=== PATIENT | female | born 1995 | race Two or more races ===

== ENCOUNTER 2019-06-01 15:35 | Inpatient (IN) | payer MEDICAID ==
[~2019-06-01] VITALS: Ht 162.6 cm; Wt 54.5 kg
[~2019-06-01 15:35] MED LIST: MANNITOL 12.5G (25%) VIAL 50ML IV NR
[2019-06-01 16:32] LABS: BASOPHILS % 0.4 % (0.0-2.0); EOSINOPHILS % 7.5 % (0.0-5.0); HEMATOCRIT. 23.1 % (36.0-48.0); HEMOGLOBIN. 7.7 g/dL (12.0-16.0); LYMPHOCYTES % 20.2 % (20.0-50.0); MEAN PLATELET VOLUME 6.9 fl (7.4-10.4); MONOCYTES % 8.5 % (2.0-8.0); NEUTROPHILS % 63.4 % (40.0-76.0); PLATELET 187 x1000/uL (130-400); RED BLOOD CELL COUNT 2.56 mill/uL (4.2-5.4); RED CELL DISTRIBUTION WIDTH 12.9 % (11.6-14.6)
[2019-06-01 16:36] LABS: CHLORIDE 105 mEq/L (98-107)
[2019-06-01 16:38] LABS: HCG SCREEN NEGATIVE
[2019-06-01 16:40] LABS: ETHANOL BLOOD < 10 mg/dL
[2019-06-01] MEDS ORDERED: DEXTROSE 50% WATER 50ML SYRINGE IV ONE (17:00)
[2019-06-01] MEDS ORDERED: SODIUM BICARBONATE 8.4% 1 MEQ/ML 50ML SYR IV ONE ×2 (17:00→19:30)
[2019-06-01] MEDS ORDERED: CALCIUM GLUCONATE 1,000 MG in DEXT 5% WATER 100 ML IV ONE (17:00)
[2019-06-01] MEDS ORDERED: INSULIN REGULAR (HUMULIN R) 300UNITS/3ML IV ONE (17:00)
[2019-06-01] MEDS: ALBUTEROL (0.083%) 2.5MG/3ML NEB HHN SCH ×3 (17:18→18:42)
[2019-06-01 17:23] LABS: BG BASE EXCESS -17.2 mmol/L (-2.0-2.0); BG CARBOXYHEMOGLOBIN 0.3 % (0.5-1.5); BG DEOXYHEMOGLOBIN 2.7 % (0.0-5.0); BG FRACTION INSPIRED OXYGEN 28; BG HCO3 ACT 9.1 mmol/L (22.0-26.0); BG METHEMOGLOBIN 0.3 % (0.0-1.5); BG OXYGEN SATURATION 97.3 % (92.0-98.5); BG OXYHEMOGLOBIN 96.7 % (94.0-97.0); BG PCO2 23.5 mmHg (35.0-45.0); BG PH 7.207 (7.350-7.450); BG PO2 123.7 mmHg (75.0-100.0); BG SAMPLE SITE LEFT RADIAL; BG TOTAL HEMOGLOBIN 8.6 g/dL (12.0-18.0); BG VENT MODE NASAL CANNULA
[2019-06-01 18:50] LABS: CLARITY URINE TURBID (CLEAR); COLOR URINE YELLOW (YELLOW); KETONES URINE TRACE (NEGATIVE); LEUKOCYTE ESTERASE URINE TRACE (NEGATIVE); NITRITE URINE NEGATIVE (NEGATIVE); OCCULT BLOOD URINE 2+ (NEGATIVE); PH URINE 7.5 (4.5-8.0); PROTEIN URINE 4+ (NEGATIVE); SPECIFIC GRAVITY URINE 1.036 (1.005-1.030); UROBILINOGEN URINE 0.2 E.U./dL (0.2-1.0)
[2019-06-01 19:11] LABS: *AMPHETAMINES SCREEN URINE NEGATIVE (NEGATIVE); *BARBITURATES SCREEN URINE NEGATIVE (NEGATIVE); *BENZODIAZEPINES SCREEN URINE NEGATIVE (NEGATIVE); *COCAINE SCREEN URINE NEGATIVE (NEGATIVE); METHADONE URINE SCREEN NEGATIVE (NEGATIVE)
[2019-06-01 19:12] LABS: OPIATES URINE SCREEN NEGATIVE (NEGATIVE); PHENCYCLIDINE URINE SCREEN NEGATIVE (NEGATIVE)
[2019-06-01 19:13] LABS: CANNABINOID URINE SCREEN PRESUMTIVE POSITIVE (NEGATIVE)
[2019-06-01 21:00] LABS: CREATINE KINASE 273 IU/L (26-192)
[2019-06-01] MEDS ORDERED: LIDOCAINE HCL/EPINEPHRINE 1%-EPI 1:100,000 30 ML VIAL INFIL ONE (22:00)
[2019-06-01] MEDS ORDERED: LIDOCAINE HCL/EPINEPHRINE 1%-EPI 1:100,000 20 ML VIAL INFIL ONE (22:00)
[2019-06-01] MEDS ORDERED: LIDOCAINE HCL/EPINEPHRINE 1%-EPI 1:100,000 50 ML VIAL INFIL ONE (22:00)
[2019-06-01] MEDS ORDERED: LIDOCAINE HCL 2%/EPINEPHRINE/PF 10 ML VIAL INFIL ONE (22:00)
[2019-06-01] MEDS ORDERED: LORAZEPAM 2MG/ML CPJ ONE (22:13)
[2019-06-02] VITALS (105 sets, daily range): BP systolic 86–176; BP diastolic 41–129
[2019-06-02] MEDS ORDERED: PREDNISONE 10MG TABLET PO SCH
[2019-06-02] MEDS: LORAZEPAM 2MG/ML CPJ IV PRN ×3 (06:54→23:40)
[2019-06-02] MEDS: CALCIUM ACETATE 667MG CAPSULE PO SCH ×2 (08:20→12:25)
[2019-06-02] MEDS ORDERED: MORPHINE SULFATE 2 MG/ML CPJ (NOT FOR IM USE) IV PRN (08:45)
[2019-06-02] MEDS: TACROLIMUS 1MG CAPSULE PO SCH ×3 (09:00→21:00)
[2019-06-02] MEDS ORDERED: SIROLIMUS 3 MG PO SCH (09:00)
[2019-06-02] MEDS: FOLIC ACID/VITAMIN B COMP W-C TABLET PO SCH ×2 (09:00→09:35)
[2019-06-02] MEDS: CALCITRIOL 0.25MCG CAPSULE PO SCH ×2 (09:00→09:35)
[2019-06-02] MEDS: CARVEDILOL 3.125 MG TABLET PO SCH ×2 (09:00→09:35)
[2019-06-02] MEDS: MYCOPHENOLATE MOFETIL 250MG CAPSULE PO SCH ×3 (09:00→21:00)
[2019-06-02] MEDS: FAMOTIDINE 20MG/2ML VIAL IV SCH (09:34)
[2019-06-02 11:07] LABS: BASOPHILS % 0.3 % (0.0-2.0); EOSINOPHILS % 0.9 % (0.0-5.0); LYMPHOCYTES % 12.4 % (20.0-50.0); MEAN CORPUSCULAR HEMOGLOBIN 29.8 pg (28.0-32.0); NEUTROPHILS % 81.4 % (40.0-76.0); PLATELET 259 x1000/uL (130-400); RED BLOOD CELL COUNT 2.37 mill/uL (4.2-5.4); RED CELL DISTRIBUTION WIDTH 12.6 % (11.6-14.6)
[2019-06-02 11:09] LABS: HEMATOCRIT. 20.6 % (36.0-48.0)
[2019-06-02 11:13] LABS: PHOSPHORUS 6.2 mg/dL (2.5-4.9)
[2019-06-02 11:37] LABS: HEPATITIS B SURFACE ANTIGEN NEGATIVE
[2019-06-02] MEDS: CEFTRIAXONE 1 G PREMIX 50 ML IV SCH (11:58)
[2019-06-02] MEDS: METHYLPREDNISOLONE SOD SUCC 500 MG in DEXT 5% WATER 100 ML IV SCH (11:58)
[2019-06-02 12:07] LABS: HEPATITIS A AB IGM NEGATIVE (NEGATIVE)
[2019-06-02] MEDS: ONDANSETRON HCL 4MG/2ML INJ IV PRN ×2 (13:07→19:27)
[2019-06-02] MEDS ORDERED: HYDRALAZINE 20MG/ML VIAL IV SCH ×2 (18:00)
[2019-06-02] MEDS ORDERED: CEPH250C2 PO (19:08)
[2019-06-02] MEDS ORDERED: FERR325T6 PO (19:08)
[2019-06-02] MEDS ORDERED: LISI10TA5 MT (19:08)
[2019-06-02] MEDS ORDERED: PROG1 PO (19:08)
[2019-06-02] MEDS ORDERED: MYCO250C PO (19:08)
[2019-06-02] MEDS ORDERED: CELL5 PO (19:08)
[2019-06-02] MEDS ORDERED: TACR0.00 PO (19:08)
[2019-06-02] MEDS ORDERED: PRED-276 PO (19:08)
[2019-06-02] MEDS ORDERED: ENAL5TAB PO (19:08)
[2019-06-02] MEDS: LEVETIRACETAM 500 MG in SODIUM CHLORIDE 0.9% 100 ML IV SCH (21:30)
[2019-06-02] MEDS: LABETALOL HCL 20MG/4ML CARPUJECT IV SCH (21:56)
[2019-06-03] VITALS (66 sets, daily range): BP systolic 66–168; BP diastolic 28–116
[2019-06-03 05:46] LABS: CHLORIDE 101 mEq/L (98-107)
[2019-06-03 05:47] LABS: BASOPHILS % 0.1 % (0.0-2.0); EOSINOPHILS % 0.1 % (0.0-5.0); HEMATOCRIT. 30.1 % (36.0-48.0); HEMOGLOBIN. 10.3 g/dL (12.0-16.0); LYMPHOCYTES % 11.2 % (20.0-50.0); MEAN CORPUSCULAR VOLUME 87.5 fL (81.0-99.0); MEAN PLATELET VOLUME 7.7 fl (7.4-10.4); MONOCYTES % 2.5 % (2.0-8.0); NEUTROPHILS % 86.1 % (40.0-76.0); PLATELET 208 x1000/uL (130-400); RED BLOOD CELL COUNT 3.44 mill/uL (4.2-5.4); RED CELL DISTRIBUTION WIDTH 13.9 % (11.6-14.6)
[2019-06-03 06:29] LABS: PHOSPHORUS 8.8 mg/dL (2.5-4.9)
[2019-06-03] MEDS: LORAZEPAM 2MG/ML CPJ IV PRN (07:14)
[2019-06-03] MEDS: ONDANSETRON HCL 4MG/2ML INJ IV PRN ×2 (07:43→14:43)
[2019-06-03] MEDS: FAMOTIDINE 20MG/2ML VIAL IV SCH (10:51)
[2019-06-03] MEDS: MYCOPHENOLATE MOFETIL 250MG CAPSULE PO SCH ×2 (10:52→21:00)
[2019-06-03] MEDS: FOLIC ACID/VITAMIN B COMP W-C TABLET PO SCH (10:52)
[2019-06-03] MEDS: CALCITRIOL 0.25MCG CAPSULE PO SCH (10:52)
[2019-06-03] MEDS: TACROLIMUS 1MG CAPSULE PO SCH ×2 (10:52→21:00)
[2019-06-03] MEDS: LEVETIRACETAM 500 MG in SODIUM CHLORIDE 0.9% 100 ML IV SCH (10:53)
[2019-06-03] MEDS: METHYLPREDNISOLONE SOD SUCC 500 MG in DEXT 5% WATER 100 ML IV SCH (10:53)
[2019-06-03] MEDS: LABETALOL HCL 20MG/4ML CARPUJECT IV SCH (11:17)
[2019-06-03] MEDS: CEFTRIAXONE 1 G PREMIX 50 ML IV SCH (13:21)
[2019-06-03] MEDS ORDERED: CLONIDINE HCL 0.1MG/24HR PATCH TD SCH (20:00)
[2019-06-03] MEDS: EPOETIN ALFA 4000UNITS/ML VIAL SUBCUT SCH (21:00)
[2019-06-03] MEDS: CARVEDILOL 12.5MG TABLET PO SCH (21:00)
[2019-06-04] VITALS (44 sets, daily range): BP systolic 122–161; BP diastolic 67–114
[2019-06-04 06:08] LABS: BASOPHILS % 0.1 % (0.0-2.0); HEMATOCRIT. 25.7 % (36.0-48.0); HEMOGLOBIN. 8.9 g/dL (12.0-16.0); MEAN PLATELET VOLUME 7.3 fl (7.4-10.4); MONOCYTES % 6.2 % (2.0-8.0); NEUTROPHILS % 82.7 % (40.0-76.0); PLATELET 201 x1000/uL (130-400); RED BLOOD CELL COUNT 2.96 mill/uL (4.2-5.4); RED CELL DISTRIBUTION WIDTH 13.2 % (11.6-14.6)
[2019-06-04 06:40] LABS: CHLORIDE 98 mEq/L (98-107)
[2019-06-04 07:09] LABS: PHOSPHORUS 9.5 mg/dL (2.5-4.9)
[2019-06-04] MEDS: FAMOTIDINE 20MG/2ML VIAL IV SCH (08:39)
[2019-06-04] MEDS: ONDANSETRON HCL 4MG/2ML INJ IV PRN ×3 (08:39→21:39)
[2019-06-04] MEDS: METHYLPREDNISOLONE SOD SUCC 500 MG in DEXT 5% WATER 100 ML IV SCH (08:40)
[2019-06-04] MEDS: CALCITRIOL 0.25MCG CAPSULE PO SCH (09:33)
[2019-06-04] MEDS: FOLIC ACID/VITAMIN B COMP W-C TABLET PO SCH (09:33)
[2019-06-04] MEDS: MYCOPHENOLATE MOFETIL 250MG CAPSULE PO SCH ×2 (09:33→21:40)
[2019-06-04] MEDS: TACROLIMUS 1MG CAPSULE PO SCH (09:33)
[2019-06-04] MEDS: CARVEDILOL 12.5MG TABLET PO SCH ×2 (09:34→21:40)
[2019-06-04] MEDS: CEFTRIAXONE 1 G PREMIX 50 ML IV SCH (10:01)
[2019-06-04] MEDS: CALCIUM ACETATE 667MG CAPSULE PO SCH ×2 (12:35→18:24)
[2019-06-04] MEDS ORDERED: CALCIUM ACETATE 667MG CAPSULE PO SCH (13:20)
[2019-06-04] MEDS: LORAZEPAM 2MG/ML CPJ IV PRN (15:57)
[2019-06-05] VITALS: BP 123/75
[2019-06-05] MEDS: TACROLIMUS 1MG CAPSULE PO SCH ×3 (00:37→21:44)
[2019-06-05 04:00] VITALS: BP 114/76
[2019-06-05 07:37] LABS: HEMATOCRIT. 25.9 % (36.0-48.0); HEMOGLOBIN. 8.8 g/dL (12.0-16.0); LYMPHOCYTES % 13.2 % (20.0-50.0); MEAN CORPUSCULAR HEMOGLOBIN 29.9 pg (28.0-32.0); MEAN CORPUSCULAR VOLUME 87.4 fL (81.0-99.0); MEAN PLATELET VOLUME 7.3 fl (7.4-10.4); MONOCYTES % 7.4 % (2.0-8.0); NEUTROPHILS % 79.4 % (40.0-76.0); PLATELET 196 x1000/uL (130-400); RED BLOOD CELL COUNT 2.96 mill/uL (4.2-5.4); RED CELL DISTRIBUTION WIDTH 13.1 % (11.6-14.6)
[2019-06-05 08:32] VITALS: BP 118/71
[2019-06-05] MEDS: MYCOPHENOLATE MOFETIL 250MG CAPSULE PO SCH ×2 (08:46→21:45)
[2019-06-05] MEDS: FOLIC ACID/VITAMIN B COMP W-C TABLET PO SCH (08:46)
[2019-06-05] MEDS: CALCITRIOL 0.25MCG CAPSULE PO SCH (08:46)
[2019-06-05] MEDS: CALCIUM ACETATE 667MG CAPSULE PO SCH ×3 (08:46→16:49)
[2019-06-05 08:49] LABS: CHLORIDE 99 mEq/L (98-107)
[2019-06-05] MEDS: CARVEDILOL 12.5MG TABLET PO SCH ×2 (09:00→21:45)
[2019-06-05 09:11] LABS: PHOSPHORUS 8.5 mg/dL (2.5-4.9)
[2019-06-05] MEDS: ONDANSETRON HCL 4MG/2ML INJ IV PRN (09:56)
[2019-06-05] MEDS: PREDNISONE 20MG TABLET PO SCH (09:58)
[2019-06-05 11:42] LABS: INR 1.2; PROTHROMBIN TIME 12.3 sec (9.6-11.0)
[2019-06-05 11:59] VITALS: BP 106/80
[2019-06-05] MEDS: CEFTRIAXONE 1 G PREMIX 50 ML IV SCH (13:37)
[2019-06-05 16:25] VITALS: BP 101/50
[2019-06-05 20:00] VITALS: BP 116/77
[2019-06-05] MEDS: FAMOTIDINE 20MG TABLET PO SCH (21:46)
[2019-06-06] VITALS (17 sets, daily range): BP systolic 107–136; BP diastolic 65–90
[2019-06-06 07:31] LABS: BASOPHILS % 0.1 % (0.0-2.0); EOSINOPHILS % 0.6 % (0.0-5.0); HEMATOCRIT. 23.3 % (36.0-48.0); HEMOGLOBIN. 8.1 g/dL (12.0-16.0); LYMPHOCYTES % 25.6 % (20.0-50.0); MEAN CORPUSCULAR HEMOGLOBIN 30.3 pg (28.0-32.0); MEAN CORPUSCULAR VOLUME 87.7 fL (81.0-99.0); MONOCYTES % 8.2 % (2.0-8.0); NEUTROPHILS % 65.5 % (40.0-76.0); PLATELET 171 x1000/uL (130-400); RED BLOOD CELL COUNT 2.66 mill/uL (4.2-5.4); RED CELL DISTRIBUTION WIDTH 12.9 % (11.6-14.6)
[2019-06-06 07:52] LABS: PHOSPHORUS 6.6 mg/dL (2.5-4.9)
[2019-06-06] MEDS: TACROLIMUS 1MG CAPSULE PO SCH ×2 (09:31→21:10)
[2019-06-06] MEDS: PREDNISONE 20MG TABLET PO SCH (09:31)
[2019-06-06] MEDS: CALCIUM ACETATE 667MG CAPSULE PO SCH ×3 (09:32→18:48)
[2019-06-06] MEDS: CALCITRIOL 0.25MCG CAPSULE PO SCH (09:33)
[2019-06-06] MEDS ORDERED: LIDOCAINE HCL 1% 20ML VIAL (Pyxis) INJ ONE (10:23)
[2019-06-06] MEDS ORDERED: SODIUM BICARBONATE 4% (2.4MEQ) 5ML VIAL IV ONE (10:23)
[2019-06-06] MEDS ORDERED: CEFAZOLIN 1000MG PREMIX 50 ML IV ONE ×2 (10:30→10:31)
[2019-06-06] MEDS ORDERED: FENTANYL CITRATE/PF 50MCG/ML 2ML VIAL ONE (10:31)
[2019-06-06] MEDS ORDERED: FENTANYL CITRATE/PF 50MCG/ML 2ML VIAL IV ONE (11:30)
[2019-06-06] MEDS: MYCOPHENOLATE MOFETIL 250MG CAPSULE PO SCH ×2 (12:41→21:10)
[2019-06-06] MEDS: CARVEDILOL 12.5MG TABLET PO SCH ×2 (12:42→21:11)
[2019-06-06] MEDS: CEFTRIAXONE 1 G PREMIX 50 ML IV SCH (12:43)
[2019-06-06] MEDS: FOLIC ACID/VITAMIN B COMP W-C TABLET PO SCH (12:46)
[2019-06-06] MEDS: EPOETIN ALFA 4000UNITS/ML VIAL SUBCUT SCH (21:10)
[2019-06-06] MEDS: FAMOTIDINE 20MG TABLET PO SCH (21:11)
[2019-06-07] VITALS: BP 109/62
[2019-06-07 04:00] VITALS: BP 117/73
[2019-06-07 06:39] LABS: BASOPHILS % 0.1 % (0.0-2.0); EOSINOPHILS % 0.8 % (0.0-5.0); HEMATOCRIT. 23.5 % (36.0-48.0); HEMOGLOBIN. 8.1 g/dL (12.0-16.0); LYMPHOCYTES % 22.5 % (20.0-50.0); MEAN CORPUSCULAR HEMOGLOBIN 30.5 pg (28.0-32.0); MEAN PLATELET VOLUME 6.9 fl (7.4-10.4); MONOCYTES % 7.8 % (2.0-8.0); NEUTROPHILS % 68.8 % (40.0-76.0); PLATELET 192 x1000/uL (130-400); RED BLOOD CELL COUNT 2.67 mill/uL (4.2-5.4); RED CELL DISTRIBUTION WIDTH 12.7 % (11.6-14.6)
[2019-06-07 07:04] LABS: PHOSPHORUS 6.2 mg/dL (2.5-4.9)
[2019-06-07 08:00] VITALS: BP 125/84
[2019-06-07] MEDS: CARVEDILOL 12.5MG TABLET PO SCH ×2 (09:00→21:02)
[2019-06-07] MEDS: TACROLIMUS 1MG CAPSULE PO SCH ×2 (09:00→21:02)
[2019-06-07] MEDS: MYCOPHENOLATE MOFETIL 250MG CAPSULE PO SCH ×2 (10:13→21:03)
[2019-06-07] MEDS: FOLIC ACID/VITAMIN B COMP W-C TABLET PO SCH (10:13)
[2019-06-07] MEDS: CALCITRIOL 0.25MCG CAPSULE PO SCH (10:13)
[2019-06-07] MEDS: CALCIUM ACETATE 667MG CAPSULE PO SCH ×3 (10:13→18:39)
[2019-06-07] MEDS: PREDNISONE 20MG TABLET PO SCH (10:13)
[2019-06-07] MEDS: CEFTRIAXONE 1 G PREMIX 50 ML IV SCH ×2 (11:00→11:54)
[2019-06-07 12:00] VITALS: BP 126/87
[2019-06-07 16:00] VITALS: BP 125/88
[2019-06-07 20:00] VITALS: BP 135/82
[2019-06-07] MEDS: FAMOTIDINE 20MG TABLET PO SCH (21:03)
[2019-06-08] VITALS: BP 129/77
[2019-06-08 04:00] VITALS: BP 129/78
[2019-06-08] MEDS: CALCIUM ACETATE 667MG CAPSULE PO SCH ×2 (06:14→12:54)
[2019-06-08 06:25] LABS: EOSINOPHILS % 1.9 % (0.0-5.0); HEMOGLOBIN. 7.5 g/dL (12.0-16.0); LYMPHOCYTES % 21.7 % (20.0-50.0); MEAN CORPUSCULAR VOLUME 88.3 fL (81.0-99.0); MEAN PLATELET VOLUME 7.4 fl (7.4-10.4); MONOCYTES % 7.4 % (2.0-8.0); PLATELET 184 x1000/uL (130-400); RED BLOOD CELL COUNT 2.49 mill/uL (4.2-5.4); RED CELL DISTRIBUTION WIDTH 12.8 % (11.6-14.6)
[2019-06-08 08:00] VITALS: BP 121/81
[2019-06-08] MEDS: PREDNISONE 20MG TABLET PO SCH (08:38)
[2019-06-08] MEDS: MYCOPHENOLATE MOFETIL 250MG CAPSULE PO SCH (08:39)
[2019-06-08] MEDS: FOLIC ACID/VITAMIN B COMP W-C TABLET PO SCH (08:39)
[2019-06-08] MEDS: CALCITRIOL 0.25MCG CAPSULE PO SCH (08:39)
[2019-06-08] MEDS: TACROLIMUS 1MG CAPSULE PO SCH (08:39)
[2019-06-08] MEDS: CARVEDILOL 12.5MG TABLET PO SCH (08:39)
[2019-06-08] MEDS ORDERED: CEFTRIAXONE 1 G PREMIX 50 ML IV SCH (11:00)
[2019-06-08 12:00] VITALS: BP 116/68
[2019-06-08 16:00] VITALS: BP 128/82
[2019-06-08] MEDS ORDERED: EPOETIN ALFA 4000UNITS/ML VIAL SUBCUT SCH (21:00)
[2019-06-09] MEDS ORDERED: PREDNISONE 10MG TABLET PO SCH (09:00)
== END 2019-06-08 17:05 | disposition home or self-care (01) | DRG 466 ==
LOC: ER 15:35 → EDBEDREQ 18:47 → EDBEDREQTM 19:30 → EDBEDREQSVC 19:30 → ENRESERV 20:24 → CVICU 23:24 → 8WST 06-04 22:59
PROVIDERS: ADMIT Internal Medicine; ATTEND Internal Medicine
PROC: 30233N1 Transfusion of Nonautologous Red Blood Cells into Peripheral Vein, Percutaneous Approach (ICD-10-PCS; principal; 2019-06-02)
PROC: 0JH63XZ Insertion of Tunneled Vascular Access Device into Chest Subcutaneous Tissue and Fascia, Percutaneous Approach (ICD-10-PCS; 2019-06-06)
PROC: 02HV33Z Insertion of Infusion Device into Superior Vena Cava, Percutaneous Approach (ICD-10-PCS; 2019-06-06)
PROC: B5181ZA Fluoroscopy of Superior Vena Cava using Low Osmolar Contrast, Guidance (ICD-10-PCS; 2019-06-06)
PROC: B548ZZA Ultrasonography of Superior Vena Cava, Guidance (ICD-10-PCS; 2019-06-06)
DX: T86.11 Kidney transplant rejection (principal); J96.00 Acute respiratory failure, unspecified whether with hypoxia or hypercapnia; G92 Toxic encephalopathy; E44.0 Moderate protein-calorie malnutrition; N17.9 Acute kidney failure, unspecified; E87.5 Hyperkalemia; E83.39 Other disorders of phosphorus metabolism; E87.2 Acidosis; D63.8 Anemia in other chronic diseases classified elsewhere; Y83.8 Other surgical procedures as the cause of abnormal reaction of the patient, or of later complication, without mention of misadventure at the time of the procedure; F12.90 Cannabis use, unspecified, uncomplicated; E83.51 Hypocalcemia; N18.6 End stage renal disease; F41.9 Anxiety disorder, unspecified; Z83.3 Family history of diabetes mellitus; Z91.19 Patient's noncompliance with other medical treatment and regimen; Z91.14 Patient's other noncompliance with medication regimen; Z88.8 Allergy status to other drugs, medicaments and biological substances; Z99.2 Dependence on renal dialysis; Z68.20 Body mass index [BMI] 20.0-20.9, adult; Z79.899 Other long term (current) drug therapy; Y92.89 Other specified places as the place of occurrence of the external cause
CPT/HCPCS: 36415; 36558; 36589; 36600; 71045; 74018; 76937; 77001; 80048; 80305; 80307; 80320; 80329; 82140; 82375; 82550; 82728; 82805; 82962; 83036; 83540; 83550; 83615; 83735; 84100; 84703; 86705; 86706; 86709; 86803; 86850; 86900; 86920; 87340; 92610; 93005; 93306; 93970; 94640; 95816; 96374; 96375; 97110; 97116; 97162; 99152; 99153; 99291; C1750; C1769; J0610; J0690; J0696; J0885; J1642; J1815; J1953; J2060; J2150; J2270; J2405; J2930; J3010; J3490; J7040; J7050; J7060; J7507; J7512; J7517; J7611; P9016; G0480; G0500